=== PATIENT | male | born 1955 | race Caucasian/White ===

== ENCOUNTER 2018-04-12 10:39 | Inpatient (IN) | payer OTHER ==
[~2018-04-12] VITALS: Ht 157.5 cm; Wt 107.0 kg
[2018-04-12 10:40] VITALS: BP_SYST 163
[2018-04-12] MEDS ORDERED: ALBUTEROL SULFATE 0.083% 2.5 MG/3 ML VIAL.NEB INH ONE (11:30)
[2018-04-12] MEDS ORDERED: LEVOFLOXACIN 500 MG/D5W 100 ML IV ONE (11:30)
[2018-04-12 11:59] LABS: BASOPHILS # (AUTO) 0.1 K/uL (0.0-0.2); BASOPHILS % (AUTO) 0.8 % (0.0-2.0); EOSINOPHILS # (AUTO) 0.1 K/uL (0.0-0.4); EOSINOPHILS % (AUTO) 0.6 % (0.0-4.0); HEMATOCRIT 47.3 % (36-54); LYMPHOCYTES # (AUTO) 1.1 K/uL (1.0-5.5); LYMPHOCYTES % (AUTO) 6.9 % (20.5-51.5); MEAN CORPUSCULAR HEMOGLOBIN 30 pg (27-31); MEAN CORPUSCULAR HGB CONC 34 % (32-36); MEAN CORPUSCULAR VOLUME 90 fL (79.0-98.0); MONOCYTES # (AUTO) 1.2 K/uL (0.0-1.0); NEUTROPHILS # (AUTO) 13.1 K/uL (1.8-7.7); NEUTROPHILS % (AUTO) 83.7 % (40.0-70.0); PLATELET COUNT (AUTO) 212 K/uL (130-430); RED BLOOD CELL COUNT(AUTO) 5.28 MIL/uL (4.2-6.2); RED CELL DISTRIBUTION WIDTH 12.2 % (9.0-15.0); WHITE BLOOD COUNT (AUTO) 15.6 K/uL (4.8-10.8)
[2018-04-12 12:07] LABS: CALCIUM 8.6 mg/dL (8.4-11.0); CREATININE 0.81 mg/dL (0.55-1.30); POTASSIUM 3.5 mmol/L (3.5-5.1)
[2018-04-12 12:09] LABS: PROTHROMBIN TIME 10.7 SECS (9.5-12.5)
[2018-04-12 12:12] LABS: ALBUMIN 3.1 g/dL (3.4-4.8); TOTAL BILIRUBIN 0.5 mg/dL (0.0-1.0)
[2018-04-12 12:31] LABS: BILIRUBIN,URINE 1+ (NEGATIVE); CLARITY/URINE CLEAR (CLEAR); COLOR,URINE YELLOW (YELLOW); GLUCOSE,URINE NEGATIVE (NEGATIVE); KETONES,URINE 2+ (NEGATIVE); LEUKOCYTE ESTERASE ,URINE NEGATIVE (NEGATIVE); NITRITE, URINE NEGATIVE (NEGATIVE); PROTEIN URINE TRACE (NEGATIVE); UROBILINOGEN,URINE 0.2 (0.2-1.0)
[2018-04-12 12:37] LABS: BLOOD, URINE TRACE (NEGATIVE)
[2018-04-12] MEDS ORDERED: PIPERACILLIN/TAZO 3.375 GM in NS 50 ML IV ONE (13:00)
[2018-04-12 13:08] LABS: BACTERIA,URINE None Seen /HPF (None Seen); MUCUS,URINE 3+ /LPF (None Seen); WBC,URINE NONE SEEN /HPF (0-3)
[2018-04-12 15:28] VITALS: BP_SYST 159
[2018-04-12] MEDS ORDERED: HYDROcodone/ACETAMIN 10-325 MG TAB PO PRN (19:45)
[2018-04-12] MEDS ORDERED: HYDROcodone/ACETAMIN 5-325 MG TAB (NORCO/ VICODIN) PO PRN (19:45)
[2018-04-12] MEDS ORDERED: ACETAMINOPHEN 325 MG TABLET PO PRN (19:45)
[2018-04-12] MEDS ORDERED: MORPHINE 4 MG/ML INJ. SYRINGE IVP PRN (19:45)
[2018-04-12] MEDS ORDERED: ONDANSETRON HCL 4 MG/2 ML VIAL IVP PRN (19:45)
[2018-04-12] MEDS ORDERED: LORazepam 2 MG/ML VIAL IVP PRN (19:45)
[2018-04-12] MEDS ORDERED: ALBUTEROL SULFATE 0.083% 2.5 MG/3 ML VIAL.NEB INH PRN (19:45)
[2018-04-12 21:15] VITALS: BP_SYST 149
[2018-04-12] MEDS: NORMAL SALINE 5 ML DISP.SYRIN IVF SCH (21:22)
[2018-04-12 23:46] VITALS: BP_SYST 142
[2018-04-13] VITALS (7 sets, daily range): BP systolic 131–167
[2018-04-13] MEDS: NORMAL SALINE 5 ML DISP.SYRIN IVF SCH ×3 (05:54→23:04)
[2018-04-13 06:33] LABS: CALCIUM 8.5 mg/dL (8.4-11.0); CREATININE 0.77 mg/dL (0.55-1.30); POTASSIUM 3.5 mmol/L (3.5-5.1)
[2018-04-13 06:35] LABS: BASOPHILS % (AUTO) 0.4 % (0.0-2.0); EOSINOPHILS # (AUTO) 0.3 K/uL (0.0-0.4); HEMATOCRIT 45.3 % (36-54); HEMOGLOBIN 15.3 g/dL (14.0-18.0); LYMPHOCYTES # (AUTO) 1.8 K/uL (1.0-5.5); LYMPHOCYTES % (AUTO) 19.7 % (20.5-51.5); MEAN CORPUSCULAR HEMOGLOBIN 30 pg (27-31); MEAN CORPUSCULAR HGB CONC 34 % (32-36); MEAN CORPUSCULAR VOLUME 89 fL (79.0-98.0); MONOCYTES # (AUTO) 1.4 K/uL (0.0-1.0); MONOCYTES % (AUTO) 14.5 % (1.7-9.3); NEUTROPHILS # (AUTO) 5.9 K/uL (1.8-7.7); NEUTROPHILS % (AUTO) 62.4 % (40.0-70.0); PLATELET COUNT (AUTO) 181 K/uL (130-430); RED BLOOD CELL COUNT(AUTO) 5.09 MIL/uL (4.2-6.2); RED CELL DISTRIBUTION WIDTH 12.4 % (9.0-15.0); WHITE BLOOD COUNT (AUTO) 9.4 K/uL (4.8-10.8)
[2018-04-13] MEDS: LEVOFLOXACIN 500 MG/D5W 100 ML IV SCH (08:42)
[2018-04-13] MEDS: cloNIDine HCL 0.1 MG TABLET PO PRN ×2 (09:05→20:31)
[2018-04-14] MEDS: NORMAL SALINE 5 ML DISP.SYRIN IVF SCH ×3 (06:35→23:03)
[2018-04-14 07:30] LABS: ALBUMIN 2.6 g/dL (3.4-4.8); C-REACTIVE PROTEIN QUANT 5.6 mg/dL (0-0.5); CALCIUM 8.4 mg/dL (8.4-11.0); CREATININE 0.83 mg/dL (0.55-1.30); POTASSIUM 3.7 mmol/L (3.5-5.1); TOTAL BILIRUBIN 0.5 mg/dL (0.0-1.0)
[2018-04-14 07:35] LABS: BASOPHILS % (AUTO) 0.4 % (0.0-2.0); EOSINOPHILS # (AUTO) 0.2 K/uL (0.0-0.4); EOSINOPHILS % (AUTO) 2.9 % (0.0-4.0); HEMATOCRIT 42.7 % (36-54); HEMOGLOBIN 14.2 g/dL (14.0-18.0); LYMPHOCYTES # (AUTO) 1.2 K/uL (1.0-5.5); LYMPHOCYTES % (AUTO) 17.6 % (20.5-51.5); MEAN CORPUSCULAR HEMOGLOBIN 30 pg (27-31); MEAN CORPUSCULAR HGB CONC 33 % (32-36); MEAN CORPUSCULAR VOLUME 90 fL (79.0-98.0); MONOCYTES % (AUTO) 14.2 % (1.7-9.3); NEUTROPHILS # (AUTO) 4.6 K/uL (1.8-7.7); NEUTROPHILS % (AUTO) 64.9 % (40.0-70.0); PLATELET COUNT (AUTO) 204 K/uL (130-430); RED BLOOD CELL COUNT(AUTO) 4.76 MIL/uL (4.2-6.2)
[2018-04-14 08:00] VITALS: BP_SYST 152
[2018-04-14 08:35] LABS: ERYTHROCYTE SEDIMENTATION RATE 42 MM/HR (0-15)
[2018-04-14] MEDS: LEVOFLOXACIN 500 MG/D5W 100 ML IV SCH (08:49)
[2018-04-14] MEDS: CLINDAMYCIN 600 MG in D5W 50 ML IV SCH ×3 (13:17→23:04)
[2018-04-14 13:20] VITALS: BP_SYST 180
[2018-04-14] MEDS: cloNIDine HCL 0.1 MG TABLET PO PRN (13:23)
[2018-04-14 14:20] VITALS: BP_SYST 166
[2018-04-14 16:00] VITALS: BP_SYST 153
[2018-04-14 20:00] VITALS: BP_SYST 149
[2018-04-15 00:17] VITALS: BP_SYST 140
[2018-04-15] MEDS: CLINDAMYCIN 600 MG in D5W 50 ML IV SCH ×2 (05:28→12:16)
[2018-04-15] MEDS: NORMAL SALINE 5 ML DISP.SYRIN IVF SCH ×2 (05:29→14:00)
[2018-04-15 07:10] LABS: BASOPHILS % (AUTO) 0.4 % (0.0-2.0); EOSINOPHILS # (AUTO) 0.3 K/uL (0.0-0.4); EOSINOPHILS % (AUTO) 5.3 % (0.0-4.0); HEMATOCRIT 42.3 % (36-54); HEMOGLOBIN 14.3 g/dL (14.0-18.0); LYMPHOCYTES # (AUTO) 1.2 K/uL (1.0-5.5); LYMPHOCYTES % (AUTO) 19.5 % (20.5-51.5); MEAN CORPUSCULAR HEMOGLOBIN 30 pg (27-31); MEAN CORPUSCULAR HGB CONC 34 % (32-36); MEAN CORPUSCULAR VOLUME 89 fL (79.0-98.0); MONOCYTES # (AUTO) 0.8 K/uL (0.0-1.0); MONOCYTES % (AUTO) 13.9 % (1.7-9.3); NEUTROPHILS # (AUTO) 3.6 K/uL (1.8-7.7); NEUTROPHILS % (AUTO) 60.9 % (40.0-70.0); PLATELET COUNT (AUTO) 208 K/uL (130-430); RED BLOOD CELL COUNT(AUTO) 4.73 MIL/uL (4.2-6.2); RED CELL DISTRIBUTION WIDTH 12.1 % (9.0-15.0); WHITE BLOOD COUNT (AUTO) 5.9 K/uL (4.8-10.8)
[2018-04-15 07:14] LABS: C-REACTIVE PROTEIN QUANT 3.9 mg/dL (0-0.5); CALCIUM 8.4 mg/dL (8.4-11.0); CREATININE 0.86 mg/dL (0.55-1.30); POTASSIUM 3.9 mmol/L (3.5-5.1)
[2018-04-15 08:00] VITALS: BP_SYST 148
[2018-04-15] MEDS: LEVOFLOXACIN 500 MG/D5W 100 ML IV SCH (08:48)
[2018-04-15 09:29] LABS: ERYTHROCYTE SEDIMENTATION RATE 38 MM/HR (0-15)
[2018-04-15 12:14] VITALS: BP_SYST 144
[2018-04-15] MEDS ORDERED: LEVO250T2 PO (12:34)
[2018-04-15] MEDS ORDERED: CLIN300C11 PO (12:35)
[2018-04-15 13:04] VITALS: BP_SYST 144
== END 2018-04-15 15:56 | disposition home or self-care (01) | DRG 155 ==
LOC: SED 10:39 → SMU 13:25
PROVIDERS: ADMIT Preventive Medicine Preventive Medicine/Occupational Environmental Medicine; ATTEND Preventive Medicine Preventive Medicine/Occupational Environmental Medicine
DX: K11.8 Other diseases of salivary glands (principal); J36 Peritonsillar abscess; Z68.41 Body mass index [BMI] 40.0-44.9, adult; E88.09 Other disorders of plasma-protein metabolism, not elsewhere classified; D72.829 Elevated white blood cell count, unspecified; I11.9 Hypertensive heart disease without heart failure; E78.5 Hyperlipidemia, unspecified; I88.8 Other nonspecific lymphadenitis; K11.1 Hypertrophy of salivary gland; R73.9 Hyperglycemia, unspecified; E66.9 Obesity, unspecified
CPT/HCPCS: 36415; 70490; 71045; 80048; 80053; 81000-TC; 83605; 83880; 84484; 85025; 85610-TC; 85651-TC; 86140; 86403; 87040-TC; 87081; 90656; 93005; 94640; 94760; 96365; 99285; J1956; J3490; J7060; J7613